=== PATIENT | male | born 1960 | race Caucasian/White ===

== ENCOUNTER 2016-08-13 10:05 | Inpatient (IN) ==
--- NOTE | 2016-08-12 21:12 | Discharge Summary ---
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 Qualified Code(s): E11.8 - Type 2 diabetes mellitus with unspecified complications (4) COPD (chronic obstructive pulmonary disease) Priority: Secondary Status: Chronic Qualifiers: COPD type: unspecified COPD Qualified Code(s): J44.9 - Chronic obstructive pulmonary disease, unspecified (5) Obese Priority: Secondary Status: Chronic Qualifiers: Obesity type: unspecified obesity type Obesity severity: unspecified obesity severity Qualified Code(s): E66.9 - Obesity, unspecified (6) Tobacco abuse Priority: Secondary Status: Chronic - Discharge Medications Home Medications: Albuterol Sulfate [Albuterol Inhaler] 2 puff IH Q4HR PRN 05/28/15 [History] Budesonide/Formoterol 80/4.5 [Symbicort 80/4.5] 2 puff IH BIDR 05/28/15 [ History] Cetirizine HCl [Zyrtec] 10 mg PO DAILY 05/28/15 [History] OxyCODONE Immed Rel [Roxicodone 5 MG] 5 - 10 mg PO Q6HR PRN #40 tablet 08/12/16 [Rx] Aspirin 81 mg PO DAILY 08/13/16 [History] Citalopram [CeleXA] 20 mg PO DAILY 08/13/16 [History] Gabapentin [Neurontin] 400 mg PO HS 08/13/16 [History] Levothyroxine [Synthroid] 25 mcg PO 0630 08/13/16 [History] Metformin HCl [Metformin HCl ER] 500 mg PO DAILY 08/13/16 [History] Omeprazole [PriLOSEC] 20 mg PO DAILY 08/13/16 [History] Tramadol HCl [Ultram] 50 - 100 mg PO QID PRN 08/13/16 [History] Allergies/Adverse Reactions: Allergies No Known Allergies Allergy (Verified 08/13/16 11:06) Primary care physician: Guillermo Black - Patient Status Disposition: Home, Self-Care Condition: Good - Discharge Instructions Follow Up With: Parish Barrera MD [Partnered Physician] - 09/09/16 7:55 am Radha Bond PAC [Physician [facility] Specialist] - 08/21/16 11:30 am Jane Mancilla MD [Partnered Physician] - 01/26/17 2:15 pm Lamin Amaya MD [Primary Care Provider] - 09/24/16 10:15 am Additional Instructions: Discharge Instructions: Total Shoulder Please call [facility] ([phone]), your Primary Care Physician, or report to the Emergency Room if you have any of the following symptoms: Nausea, vomiting, fever greater that 101.5, swelling, chest pain, shortness of breath, increased pain/redness/drainage/odor for your incision site, numbness/ tingling, or any other concerning symptoms. TAKE YOUR PILLOW OUT FROM BEHIND YOUR SLING TOMORROW MORNING. ACTIVITY: Always keep your arm in the sling. Do not raise your arm away from your body. Do not use your arm to help with getting in or out of bed. No weight bearing permitted. Only perform those exercises given to you by your therapist. MEDICATIONS: Upon discharge resume your home medications. Take all the medications as prescribed. Take a stool softener if taking narcotic pain medications. Stool softeners are only effective if you drink enough fluids. Drink 6-8 glass of water or fluids a day, unless this is not allowed for another health problem. Despite using stool softeners, if you haven't had a bowel movement in 3 days, please switch to a gentle laxative. Gentle laxatives are sold over the counter. You should have a bowel movement within 24 hours, if not call the office. You will be discharged from the hospital with a prescription for pain medication. You are encouraged to decrease the use of narcotic pain medication as tolerated. Should you require a refill, please call the office. [facility] prescribes narcotic pain medication for only 4-6 weeks after surgery. If you require pain medication beyond this time period, you may be referred to your Primary Care Physician or to the Pain Clinic for further evaluation. Plan ahead for refills on pain medication as many narcotics either need to be picked up at the office or mailed. It is best to call 48-72 hours in advance of needing a prescription refill so you don't run out of medication. To help control the post-operative pain, you may take NSAIDs (Aleve,Advil, Motrin, ibuprofen, naprosyn) or Tylenol as prescribed on the bottle in addition to the pain medication. ANTICOAGULATION (blood thinners): Continue your Aspirin, Lovenox or Coumadin as prescribed to help prevent a blood clot in the leg or in the lungs. As long as your incision remains dry and you tolerate the NSAIDs (Aleve, Advil, Motrin, ibuprofen, naprosyn), it is OK to use the NSAIDS while you are taking your anticoagulation medication. Should your incision start to drain, stop the NSAID and contact our office. Common symptoms of blood clot in the legs include: localized pain, swelling, calf tenderness, redness or discoloration of the skin. Blood clot in the lung symptoms include: shortness of breath, rapid pulse, sweating, and chest pain that worsens with deep breathing, coughing up blood, lightheadedness, and feelings of anxiety. If you experience any of these symptoms notify your physician immediately, go to the emergency room, or if having trouble breathing , call 911. WOUND CARE: Leave the dressing on for 7 days. You may change the dressing if it becomes saturated greater than 50%. You can shower but not a tub bath or submerge your incision in water. Wash your hands with antibacterial soap, rinse and dry prior to any wound care. If you have alexx the visiting nurse or rehab facility can remove the stapes 10-14 days after surgery and place steri -strips across the wound. Leave the steri-strips in place until they fall off on their won. You may let water from the shower run on top of the steri- stirips. If you do not have a visiting nurse or rehab facility, you will need to return to the office at 10-14 days for the alexx to be removed. FOLLOW-UP: Please follow up with your surgeon in the orthopedic clinic, as scheduled - Hospital Course Hospital course: Mr. 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 Qualified Code(s): E11.8 - Type 2 diabetes mellitus with unspecified complications (3) SHANKAR on CPAP Priority: Secondary Status: Chronic (4) COPD (chronic obstructive pulmonary disease) Priority: Secondary Status: Chronic Qualifiers: COPD type: unspecified COPD Qualified Code(s): J44.9 - Chronic obstructive pulmonary disease, unspecified (5) Obese Priority: Secondary Status: Chronic Qualifiers: Obesity type: unspecified obesity type Obesity severity: unspecified obesity severity Qualified Code(s): E66.9 - Obesity, unspecified (6) Tobacco abuse Priority: Secondary Status: Chronic Primary care physician: Guillermo Black - Patient Status Functional capacity at discharge: independent ambulation Overall status at discharge: patient is progressing back to baseline (Discharge on 08/13/16) - Hospital Course Hospital course: Mr. Aguirre is a 56 year old male The patient had an uneventful postoperative course. They received antibiotics and physical therapy and were discharged in stable condition. There will follow -up in the office in 2 weeks. - Time Spent with Patient Total time spent providing and/or coordinating discharge services:
--- NOTE | 2016-08-13 10:31 | Anesthesia Evaluation PreOp ---
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 Gets severe PONV) Alcohol Use: occasionally, heavy Drug use: none Medications and Allergies Albuterol Sulfate [Albuterol Inhaler] 90 mcg IH Q4HR PRN 05/28/15 [History] Budesonide/Formoterol 80/4.5 [Symbicort 80/4.5] 2 puff IH BIDR 05/28/15 [ History] Cetirizine HCl [Zyrtec] 10 mg PO DAILY 05/28/15 [History] Citalopram [CeleXA] 20 mg PO DAILY 05/28/15 [History] Gabapentin [Neurontin] 800 mg PO HS 05/28/15 [History] Ranitidine HCl [Zantac] 300 mg PO DAILY 05/28/15 [History] OxyCODONE Immed Rel [Roxicodone 5 MG] 5 - 10 mg PO Q6HR PRN #40 tablet 08/12/16 [Rx] Allergies No Known Allergies Allergy (Verified 05/28/15 13:13) - Meds/Allergy Pre-op Review Medications Reviewed: Yes Allergies Reviewed: Yes Beta Blockers on Current Med List: No Anesthesia Results - Labs Laboratory Tests 07/30/16 07/30/16 12:20 12:20 Hgb 14.1 Hct 39.9 Plt Count 223 Sodium 137 Potassium 4.3 BUN 15 Creatinine 0.89 - Imaging EKG: report reviewed (NSR) Anesthesia Exam Height: 70in Weight: 287lbs (BMI = 41) NPO (# of Hours): 8 Pain Scale: 0 Pain Scale Used: Numeric (1 - 10) - HEENT Pupil (Motor): EOMI Mallampati: III Teeth: Edentulous Oral Opening: Greater than 3 - CAFE SITE ATTENDANT LOC: Oriented CAFE SITE ATTENDANT Motor: Normal RUE, Normal LUE, Normal RLE, Normal LLE, Normal Face CAFE SITE ATTENDANT Sensory: Normal: RUE, LUE, RLE, LLE, Face - Cardiac Rhythm: Regular Murmur: None - Pulmonary Breath Sounds: bilateral Clear Respiratory Effort: Symmetrical Anesthesia Assess/Plan ASA Score: 3 Modified [place] Scale for Level of Consciousness: Cooperative, oriented, and tranquil Anesthetic Plan: General Monitoring Plan: Standard Monitors Recovery Plan: PACU (Discussed GA and block.Questins answered and agrees to proceed with both. Will use TIVA with block for anesthesia.)
--- NOTE | 2016-08-13 10:43 | History & Physical Report ---
Date of Encounter: 08/13/16 Time of Encounter: 10:43 24 Hour HP Update - Instructions Instructions: If the History and Physical is less than 30 days old and was completed prior to A.M. admission and or procedure and has NOT been updated on calendar day of procedure please complete this update prior to performing procedure. - Update Patient reports changes in Medical Condition: No Changes in assessment/condition: No Changes in Medication: No Preop tests/diagnostics Reviewed: Yes Surgery Remains Indicated: Yes Consent for Planned Operative Procedure(s) Verified: Yes - Pre-Operative Checklist Preoperative Checklist Indicated: No Prophylactic Antibiotic Ordered: Yes Is VTE Prophylaxis Indicated?: Yes
[2016-08-13] MEDS ORDERED: CeFAZolin Pre 3,000 MG/100 ML 3,000 MG/100 ML BAG IVPB ONE (10:57)
[2016-08-13] MEDS ORDERED: Ringers Solution, Lactated 1,000 ML IVC SCH ×2 (11:00→14:59)
[2016-08-13] MEDS ORDERED: *HR* Propofol 200 MG/20 ML VIAL IVP ONE ×2 (11:20→12:13)
[2016-08-13] MEDS ORDERED: *HR* Midazolam HCl 2 MG/2 ML VIAL ONE (11:20)
[2016-08-13] MEDS ORDERED: *HR* FentaNYL (PF) 100 MCG/2 ML VIAL ONE (11:20)
[2016-08-13] MEDS ORDERED: Bupivacaine/Clonidine Syringe 1 EACH SYRINGE ONE (11:30)
[2016-08-13] MEDS ORDERED: ROPIVACAINE HCL/PF 0.5% 30 ML VIAL ONE (11:48)
[2016-08-13] MEDS ORDERED: Tetracaine/PF 20 MG/2 ML AMPUL SPINA ONE (11:48)
[2016-08-13] MEDS ORDERED: Ondansetron 4 MG/2 ML VIAL ONE (12:08)
[2016-08-13] MEDS ORDERED: Lidocaine -MPF 2% 2 ML VIAL ONE (12:08)
[2016-08-13] MEDS ORDERED: Dexamethasone 4 MG/ML VIAL ONE (12:08)
--- NOTE | 2016-08-13 13:06 | Orthopedic Operative Note ---
Date of procedure: 08/13/16 Pre-op diagnosis: Right shoulder cuff tear arthropathy Post-op diagnosis: same Procedure: Procedure: Right Total Shoulder Replacment Reverse, biceps tenodesis Estimated blood loss: 300 cc Hardware:Arthrex large glenoid baseplate, 2 4.5 screws. 1 6.5 screw, 42 lateral glenosphere, 12 humeral stem, poly insert 3 and 6 metal Exam Under anesthesia: Full motion and stability Procedural Notes: Irreparable tears subscap supraspinatus tendon. Operative procedure: The patient was brought to the operating room and placed on the operating room table. After general anesthesia was administered the operative shoulder was examined. Findings were noted. The patient was placed in the modified beachchair position. All pressure points were padded appropriately. And the head was stabilized in the neutral position. The operative extremity was prepped and draped in the sterile surgical fashion. The patient received IV antibiotics prior to skin incision. A standard deltopectoral approach was made to the operative shoulder. Incision was made to the skin and subcutaneous tissue,hemo stasis was obtained with Bovie cautery. Using careful blunt dissection the cephalic vein was identified and mobilized medially. The deltopectoral interval was developed and the clavipectoral fascia was incised. The subscap was irreparable. The humerus was dislocated patient noted to have irreparable tear supraspinatus tendon, and the humeral cut was made along the anatomic neck. Anterior and posterior Bankart retractors were placed to expose the glenoid. The glenoid guide was seated and the centering hole was made. It was reamed with the appropriate large reamer. The large baseplate was seated and secured with (2) 4.5 screws and one 6.5 screw. The baseplate was irrigated and dried and the 42 lateral Glenosphere was seated and secured with the Brownlee taper. The Brownlee taper was tested and found to be secure the humerus was redislocated and prepared with the diaphyseal reamers, followed by a broaching process up to the appropriate size X in the patient's anatomic version. The metaphyseal reamer was then utilized. Trial reduction found the shoulder to be relocatable. Trial components were removed and drill holes were placed in the lesser tuberosity. They were filled with #5 FiberWire suture incorporating the biceps tendon. These sutures were used for a biceps tenodesis. The appropriate 12 stem was impacted in place in the patient's anatomic version. Trial reduction found the shoulder to be relocatable and stable with the 6 metal 3 Rylie Trial component was removed and the real 6 metal 3 Rylie was seated and secured the shoulder was reduced. The shoulder had excellent motion and excellent stability and no evidence of dislocation. The deep tissue was irrigated with pulse irrigation. The subscap was repaired incorporating the biceps tendon for biceps tenodesis and a subscap repair. The deltopectoral interval was closed with a running #1 PDS suture, subcutaneous tissue was irrigated and closed with 0 PDS suture, the skin was closed with Dermabond skin alexx. The patient was placed in a sterile dressing, abduction brace and extubated. The patient was then transferred to the recovery room in stable condition. Anesthesia: SOFIAA Surgeon: Parish Barrera Condition: stable Disposition: PACU
[2016-08-13] MEDS: *HR* HYDROmorphone (PF) 1 MG/ML SYRINGE IVP PRN ×2 (13:27→13:36)
[2016-08-13] MEDS ORDERED: Bupivacaine/EPI 1:200k 0.5%PF 10 ML VIAL ONE (13:39)
[2016-08-13] MEDS ORDERED: Lidocaine -MPF 2% 5 ML VIAL INFILT ONE (13:39)
[2016-08-13 13:51] LABS: Hematocrit 37.7 % (37.5-50.1); Hemoglobin 12.9 g/dL (12.9-16.9)
--- NOTE | 2016-08-13 14:18 | Anesthesia Procedures ---
Date of Encounter: 08/13/16 Time of Encounter: 14:16 Procedures: Anesthesia - Nerve Block Procedure Date: 08/13/16 Time: 14:16 Surgical Procedure: right total shoulder. Checklist: Correct Patient Identifier, Correct procedure, History checked Correct side: Right Blood Thinner: No Monitor Applied: EKG, BP, Pulse Oximetry Indication: Post Op Analgesia Pre-op Neuro Deficits: Yes Block Type: Interscalene Sterile Technique: Yes Ultrasound used: Yes Anatomy identified: Yes Visual spread of Local: Yes Neuro Stimulation: No Blood on Needle Aspiration: No Smooth Injection of Local: Yes Pain with Injection of Local: No Prep: Chlorhexadine Needle: 22 x 50 mm Stimuplex Local: Other Volume (cc): 22 Number of Attempts: 1 Complications: None/effective block Vitals: vss though out, rescue supraclavical block, block per request of surgeon.
--- NOTE | 2016-08-13 14:49 | Anesthesia Evaluation Post Op ---
Date of Encounter: 08/13/16 Time of Encounter: 14:40 - Vital Signs Vital Signs: Vital Signs/O2 Sat/Glucose, Most Current Temp Pulse Resp BP Pulse Ox 08/13/16 14:31 97.8 F 88 18 125/84 93 L 08/13/16 14:21 97.2 F L 87 18 132/76 93 L 08/13/16 14:11 78 18 118/80 94 L 08/13/16 14:01 78 18 155/91 94 L 08/13/16 13:51 97.5 F L 79 16 136/92 96 08/13/16 13:41 96 16 128/82 95 08/13/16 13:31 70 16 136/90 95 08/13/16 13:21 97.5 F L 73 16 142/90 96 08/13/16 11:52 66 18 135/76 96 - Lungs Lungs: Clear Ascult./Percussion - Airway Airway: Non-obstructed - Cardiovascular Regular Rate - Mental Status Mental Status: Alert & Oriented, Answers Appropriately - Pain Pain Scale: 0 - Nausea Vomiting Nausea Vomiting: Not Present - Hydration Hydration: Tolerates oral liquids - Discharge PostOp Status: Transfer Patient to floor
[2016-08-13] MEDS ORDERED: Naloxone 0.4 MG/ML INJ IVP PRN (14:59)
[2016-08-13] MEDS ORDERED: Temazepam 15 MG CAPSULE PO PRN (14:59)
[2016-08-13] MEDS ORDERED: Sennosides 8.6 MG TABLET PO PRN (14:59)
[2016-08-13] MEDS ORDERED: MOM Conc 10 ML UD.LIQ PO PRN (14:59)
[2016-08-13] MEDS ORDERED: Ondansetron 4 MG/2 ML VIAL IVP PRN (14:59)
[2016-08-13] MEDS ORDERED: *HR* HYDROmorphone (PF) 1 MG/ML SYRINGE IVP PRN (14:59)
[2016-08-13] MEDS ORDERED: Acetaminophen 325 MG TABLET PO PRN (14:59)
[2016-08-13] MEDS ORDERED: *HR* OxyCODONE Immed Rel 5 MG TABLET PO PRN ×2 (14:59)
[2016-08-13 17:29] VITALS: BP 123/60
[2016-08-13] MEDS ORDERED: *HR* Enoxaparin 30 MG/0.3 ML SYRINGE SQ SCH ×2 (18:00)
[2016-08-13] MEDS ORDERED: ceFAZolin 3,000 MG in D5% in Water 100 ML IVPB SCH (20:00)
== END 2016-08-13 18:44 | disposition home or self-care (01) | DRG 483 ==
LOC: SAMDAY 10:05 → 3NENU 14:47
PROVIDERS: ADMIT Orthopaedic Surgery; ATTEND Orthopaedic Surgery